=== PATIENT | female | born 1985 | race Caucasian/White ===

== ENCOUNTER 2018-10-22 19:47 | Emergency (ER) | payer OTHER, MEDICAID, SELFPAY ==
[2018-10-22 20:07] VITALS: BP 110/65; PULSE 82; RESP 14; TEMP 36.7; O2SAT 94
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
== END 2018-10-22 22:02 | disposition home or self-care (01) ==
PROVIDERS: Emergency Provider Nurse Practitioner; PCP Student in an Organized Health Care Education/Training Program
DX: M54.2 Cervicalgia (principal); M54.6 Pain in thoracic spine; R51 Headache; M79.601 Pain in right arm; V53.6XXA Passenger in pick-up truck or van injured in collision with car, pick-up truck or van in traffic accident, initial encounter
CPT/HCPCS: 72072; 99282; 99283

== ENCOUNTER → 2019-01-15 16:05 | Outpatient (CLI) | payer OTHER, MEDICAID, SELFPAY ==
[2019-01-15 17:10] LABS: Alanine Aminotransferase 12 IU/L (9-52); Albumin 4.1 g/dL (3.5-5.0); Albumin Globulin Ratio 1.5 (1.0-2.8); Alkaline Phosphatase 65 U/L (38-126); Aspartate Aminotransferase 16 IU/L (14-36); BUN Creatinine Ratio 13.8 (6-22); Bilirubin Total 0.3 mg/dL (0.2-1.3); Blood Urea Nitrogen 11 mg/dL (7-17); Calcium 8.9 mg/dL (8.4-10.2); Carbon Dioxide 30 mmol/L (22-32); Chloride 100 mmol/L (98-107); Estimated Glomerular Filt Rate > 60.0 mL/min (>60); Globulin 2.7 g/dL (1.7-4.1); Glucose 94 mg/dL (70-100); HEMOLYSIS < 15 (0-50); Sodium 138 mmol/L (137-145); Total Protein 6.8 g/dL (6.3-8.2)
[2019-01-15 18:20] LABS: HIV 1 and 2 Antibody NEGATIVE (NEGATIVE)
[2019-01-18 08:33] LABS: Hepatitis A Antibody IgM NONREACTIVE (NONREACTIVE); Hepatitis Acute Panel Interp 0.01; Hepatitis B Core Antibody IgM NONREACTIVE (NONREACTIVE); Hepatitis B Surface Antigen NONREACTIVE (NONREACTIVE); Hepatitis C Antibody NONREACTIVE
== END ==
PROVIDERS: Visit Provider Internal Medicine
DX: F19.11 Other psychoactive substance abuse, in remission (principal)
CPT/HCPCS: 36415; 80053; 80074; 86703

== ENCOUNTER 2019-06-18 16:09 | Emergency (ER) | payer OTHER, MEDICAID, SELFPAY ==
[2019-06-18 16:14] VITALS: BP 113/89; PULSE 86; RESP 14; TEMP 36.2; O2SAT 98; BMI 27.4
--- NOTE | 2019-06-18 16:23 | PC.NURSE ---
upper respiratory sxs for 2 weeks. now with left ear pain. denies fever,vomiting, +diarrhea. exposure of family illness.
--- NOTE | 2019-06-18 16:26 | ED.EAR ---
HPI - Ear Problem <NAY Hoskins - Last Filed: 06/18/19 16:36> General Chief complaint: Ear Stated complaint: SINUS INFECTION LEFT EAR PAIN Time Seen by Provider: 06/18/19 16:14 Source: patient Mode of arrival: Ambulatory Limitations: no limitations History of Present Illness HPI Narrative: 34-year-old female presents to the emergency department complaining of left ear pressure for the past 24 hours. She states she has had a cold for the past 1-2 weeks. She reports nasal congestion, rhinorrhea, sore throat, and occasional cough which has mostly cleared. She continues to have rhinorrhea with green-yellow mucus. Patient denies any ear pain, fevers, chills, nausea, vomiting, abdominal pain, dizziness, chest pain, shortness of breath, wheezing, or other concerns. She denies any history of respiratory illnesses. Related Data Home Medications Medication Instructions Recorded Confirmed aripiprazole 15 mg PO DAILY 10/22/18 10/22/18 buprenorphine-naloxone 1.5 tab SUBLINGUAL 10/22/18 trazodone 50 mg PO BEDTIME 10/22/18 10/22/18 Previous Rx's Medication Instructions Recorded fluticasone propionate [Flonase 1 spray NASAL Q12H 14 Days #15.8 ml 06/18/19 Allergy Relief] Allergies Allergy/AdvReac Type Severity Reaction Status Date / Time No Known Drug Allergies Allergy Verified 06/18/19 16:14 Review of Systems <NAY Hoskins - Last Filed: 06/18/19 16:36> Review of Systems Narrative: REVIEW OF SYSTEMS: GENERAL: Denies fevers. HENT: No head trauma or hearing loss. Reports left ear pressure, see HPI. EYES: No loss of vision, double vision, eye pain, irritation or discharge. CARDIOVASCULAR: No chest pain or syncope. RESPIRATORY: No shortness of breath. GASTROINTESTINAL: No nausea, vomiting, diarrhea, or constipation. MUSCULOSKELETAL: No weakness or injury. INTEGUMENTARY: No rash, lesions, or pruritus. NEURO: No memory loss, or confusion. Patient History <NAY Hoskins - Last Filed: 06/18/19 16:36> Medical History No significant medical problems (Chronic) Surgical History H/O tubal ligation (Chronic) Social History Smoking Status: Current every day smoker Smoking Status: Current every day smoker alcohol intake frequency: 0-2 drinks per day Substance Use Type: does not use Exam <NAY Hoskins - Last Filed: 06/18/19 16:36> Initial Vital Signs Initial Vital Signs: Vital Signs Temperature 97.1 F L 06/18/19 16:14 Pulse Rate 86 06/18/19 16:14 Respiratory Rate 14 06/18/19 16:14 Blood Pressure 113/89 06/18/19 16:14 Pulse Oximetry 98 06/18/19 16:14 PHYSICAL EXAMINATION: GENERAL: Alert, and cooperative. Answers questions promptly and appropriately. Vital signs noted. HENT: Normocephalic, atraumatic. Hearing intact. Oral mucosa is pink and moist. Face features symmetrical. Right TM Intact with crisp light reflex. Left TM with clear effusion.. EYES: Conjunctiva pink, sclera white, no periorbital swelling. No discharge. CARDIOVASCULAR: Regular rate. S1-S2 sounds heard. RESPIRATORY: Normal respiratory rate, trachea midline, airway patent. No stridor, nasal flaring or accessory muscle use. Lungs clear without wheeze or rhonchi. Occasional productive cough noted. MUSCULOSKELETAL: Normal gait and coordination. Equal tone and mass bilaterally. SKIN: Warm, dry, soft, appropriate color for ethnicity. NEURO: Alert and Oriented X 3. Good coordination. PSYCH: Appropriate affect and mood. <Virginie Soto DO - Last Filed: 06/21/19 07:34> Initial Vital Signs Initial Vital Signs: Vital Signs Temperature 97.1 F L 06/18/19 16:14 Pulse Rate 86 06/18/19 16:14 Respiratory Rate 14 06/18/19 16:14 Blood Pressure 113/89 06/18/19 16:14 Pulse Oximetry 98 06/18/19 16:14 Course <NAY Hoskins - Last Filed: 06/18/19 16:36> Vital Signs Vital signs: Vital Signs - 8 hr 06/18/19 16:14 Temperature 97.1 F L Pulse Rate 86 Respiratory Rate 14 Blood Pressure 113/89 Pulse Oximetry 98 <DO Sowmya Bolton Last Filed: 06/21/19 07:34> Vital Signs Vital signs: Vital Signs - 8 hr 06/18/19 16:14 Temperature 97.1 F L Pulse Rate 86 Respiratory Rate 14 Blood Pressure 113/89 Pulse Oximetry 98 Medical Decision Making <NAY Hoskins - Last Filed: 06/18/19 16:36> Medical Records Medical records reviewed: Yes I reviewed the patient's medical records. Lab Data Lab results reviewed: Yes I reviewed the patient's lab results. MDM Narrative Medical decision making narrative: 34-year-old female presents with a complaint of left ear pressure. Otitis effusion seen on examination Without concern for infection due to lack of erythematous or bulging TM. I discussed with patient that Flonase is recommended to help with otitis effusion and the sinus pressure. We discussed the benefits and risks of antibiotics and at this point her sinusitis is most likely viral. Patient was encouraged to follow up with her primary care provider in 1 week for further evaluation especially if her symptoms continue. Patient agreed with plan care verbalized understanding. Discharge Plan Departure Patient Disposition: Home Clinical Impression: Left otitis media with effusion Discharge Date/Time: 06/18/19 16:37 Instructions: DI for Sinusitis Activity Restrictions/Additional Instructions: Thank you for entrusting me with your care today. As discussed, you have a small amount of fluid in your left ear, this does not appear to be infected at this time. I suggest using Flonase, 1 spray in each nostril morning and night for the next 2 weeks, as well as Neti pot rinses to clear sinuses.. This will help your sinus congestion and fluid in ear. Follow up with your primary care provider in the next week for further evaluation especially if your symptoms worsen. Prescriptions: New fluticasone propionate [Flonase Allergy Relief] 50 mcg/actuation spray,suspension 1 spray NASAL Q12H 14 Days Qty: 15.8 RF: 0 No Action trazodone 50 mg tablet 50 mg PO BEDTIME RF: 0 aripiprazole 15 mg tablet 15 mg PO DAILY RF: 0 buprenorphine-naloxone 8-2 mg tablet, sublingual 1.5 tab Sublingual RF: 0
== END 2019-06-18 16:37 | disposition home or self-care (01) ==
PROVIDERS: Emergency Provider Nurse Practitioner
DX: H65.92 Unspecified nonsuppurative otitis media, left ear (principal)
CPT/HCPCS: 99281

== ENCOUNTER 2020-09-20 19:26 | Emergency (ER) | payer OTHER, MEDICAID, SELFPAY ==
--- NOTE | 2020-09-20 19:35 | ED_ITS ---
HPI - General Adult General Chief complaint: Recheck/Abnormal Lab/Rx Stated complaint: Out Of Psych Meds, Not Going Well Time Seen by Provider: 09/20/20 19:34 Source: patient Mode of arrival: Ambulatory Limitations: no limitations History of Present Illness HPI narrative: 35-year-old female daily smoker with known mental health disease presents with the request to get a refill on her Abilify. She has been out of it for at least a few weeks as she is in between providers. She does have an established upcoming appointment and is asking only that we fill her medications in the short term. She's had some increase in auditory and visual hallucinations, but is not having trouble performing her ADLs. She denies suicidal or homicidal ideation. She denies any alcohol or street drugs. She is otherwise well and free of complaint Onset (ago): day(s) Related Data Home Medications Medication Instructions Recorded Confirmed aripiprazole 15 mg PO DAILY 10/22/18 10/22/18 buprenorphine-naloxone 1.5 tab SUBLINGUAL 10/22/18 trazodone 50 mg PO BEDTIME 10/22/18 10/22/18 Previous Rx's Medication Instructions Recorded aripiprazole [Abilify] 15 mg PO DAILY #14 tab 09/20/20 Allergies Allergy/AdvReac Type Severity Reaction Status Date / Time No Known Drug Allergies Allergy Verified 06/18/19 16:14 Review of Systems Constitutional Constitutional: Denies chills, Denies fatigue, Denies fever(s), Denies frequent falls, Denies lethargy and Denies weakness Eyes Eyes: Denies change in vision, Denies eye discharge, Denies irritation and Denies loss of vision ENT Ears, Nose, Mouth, and Throat: Denies change in voice, Denies dizziness, Denies neck pain, Denies sore throat and Denies throat swelling Cardiovascular Cardiovascular: Denies chest pain, Denies irregular heart rhythm, Denies light headedness, Denies palpitations, Denies dyspnea, Denies dyspnea on exertion and Denies orthopnea Respiratory Respiratory: Denies cough, Denies dyspnea, Denies dyspnea on exertion and Denies wheezing Gastrointestinal Gastrointestinal: Denies abdominal pain, Denies change in bowel habits, Denies diarrhea, Denies nausea and Denies vomiting Musculoskeletal Musculoskeletal: Denies neck pain and Denies numbness Integumentary/Breasts Skin/Breast: Denies pruritus, Denies erythema, Denies rash and Denies wounds Neurologic Neurologic: Denies behavioral changes, Denies confusion, Denies dizziness, Denies frequent falls, Denies loss of vision, Denies numbness and Denies weakness Psychiatric Psychiatric: Denies anxiety, Denies behavioral changes, Denies confusion, Denies depression, Reports auditory hallucinations, Reports visual hallucinations, Denies homicidal ideation and Denies suicidal ideation Endocrine Endocrine: Denies fatigue, Denies flushing and Denies palpitations Hematologic/Lymphatic Hematologic/Lymphatic: Denies easy bruising Allergic/Immunologic Allergic/Immunologic: Denies urticaria, Denies throat swelling and Denies wheezing Patient History Medical History No significant medical problems Surgical History H/O tubal ligation Social History Smoking Status: Current every day smoker Smoking Status: Current every day smoker alcohol intake frequency: 0-2 drinks per day Substance Use Type: does not use Exam Narrative Exam Narrative: GEN: AOx3 and in mild distress EYES: Pupils are equal, round, and reactive to light and accommodation. Extraoccular muscles are intact bilaterally. There is no subconjunctival hemorrhage or exudate. CHEST: Lungs are clear to auscultation bilaterally and free of wheezes, rales, or rhonchi. Heart rate is regular rhythm, there are no murmurs, clicks, rubs, or gallops. There is no chest wall tenderness. ABD: Abdomen is soft and nontender. There is no guarding or rebound. Bowel sounds are normal in all 4 quadrants. There is no mass or organomegaly. EXT: Full painless ROM of all extremities with no loss of sensation or strength. SKIN: Warm, pink, and dry. No erythema or rash Initial Vital Signs Initial Vital Signs: Vital Signs Temperature 98.2 F 09/20/20 19:37 Pulse Rate 88 09/20/20 19:37 Respiratory Rate 16 09/20/20 19:37 Blood Pressure 120/78 09/20/20 19:37 Pulse Oximetry 100 09/20/20 19:37 Course Vital Signs Vital signs: Vital Signs - 8 hr 09/20/20 19:37 Temperature 98.2 F Pulse Rate 88 Respiratory Rate 16 Blood Pressure 120/78 Pulse Oximetry 100 Medical Decision Making MDM Narrative Medical decision making narrative: Patient with mild hallucinations, no SI, no HI and able to perform ADLs. She has capacity and insight. Only once Abilify refill, has established an appointment with primary care shortly. She has been given return precautions and has had questions answered to her apparent satisfaction Discharge Plan Departure Patient Disposition: Home Clinical Impression: Encounter for medication refill, Auditory hallucinations Activity Restrictions/Additional Instructions: *You have been diagnosed with [ medication refill. ] *What to do: *Take medications as directed *Follow up with your primary care provider in 2-3 days, call for an appoi ntment. Let them know you were seen in the Emergency Department and that we ask that you be seen in follow up *Return to ER if you should have any new, worsening or concerning symptoms, such as [suicidal or homicidal thoughts or other bothersome symptoms] Prescriptions: New aripiprazole [Abilify] 15 mg tablet 15 mg PO DAILY Qty: 14 RF: 0 No Action trazodone 50 mg tablet 50 mg PO BEDTIME RF: 0 aripiprazole 15 mg tablet 15 mg PO DAILY RF: 0 buprenorphine-naloxone 8-2 mg tablet, sublingual 1.5 tab Sublingual RF: 0 [facility]errals: [facility] [Outside]
[2020-09-20 19:37] VITALS: BP 120/78; PULSE 88; RESP 16; TEMP 36.8; O2SAT 100
== END 2020-09-20 19:53 | disposition home or self-care (01) ==
PROVIDERS: Emergency Provider Emergency Medicine
DX: Z76.0 Encounter for issue of repeat prescription (principal); R44.0 Auditory hallucinations
CPT/HCPCS: 99281

== ENCOUNTER 2021-02-20 17:29 | Emergency (ER) | payer OTHER, MEDICAID, SELFPAY ==
[2021-02-20 17:35] VITALS: BP 120/71; PULSE 107; RESP 18; TEMP 36.8; O2SAT 99; BMI 31.8
--- NOTE | 2021-02-20 17:45 | DI.RAD.S_ITS ---
PROCEDURE: XR SHOULDER LT MIN 2V INDICATIONS: pain TECHNIQUE: 3 views of the shoulder were acquired. COMPARISON: None. FINDINGS: Bones: No fractures or dislocations. No suspicious bony lesions. Visualized ribs appear intact. Soft tissues: No suspicious soft tissue calcifications. IMPRESSION: Normal left shoulder Dictated by: Enrique Gruber M.D. on 02/20/2021 at 18:08 Approved by: Enrique Gruber M.D. on 02/20/2021 at 18:09
--- NOTE | 2021-02-20 18:15 | ED.UPPEXIN ---
HPI - Extremity Injury (Upper) <Gaurav Rodriguez PA-C - Last Filed: 02/20/21 18:19> General Chief Complaint: Extremity Injury, Upper Stated Complaint: LEFT SHOULDER PAIN T-2 Time Seen by Provider: 02/20/21 17:34 Source: patient Mode of arrival: Ambulatory Limitations: no limitations History of Present Illness HPI narrative: Nicky presents today with chief complaint of left shoulder pain that started about 2 days ago. She reports that she fell asleep with her arm above her head and woke up with significant pain in the next morning. She was just sleeping on her bed. She reports that the pain is worse when she rotates her neck to the left or to the right or if she pulls on something. She denies any significant chest pain, shortness of breath, fever, rash or any other acute concerns or complaints at this time. Related Data Home Medications Medication Instructions Recorded Confirmed aripiprazole 15 mg tablet 15 mg PO DAILY 10/22/18 10/22/18 buprenorphine 8 mg-naloxone 2 mg 1.5 tab SUBLINGUAL 10/22/18 sublingual tablet trazodone 50 mg tablet 50 mg PO BEDTIME 10/22/18 10/22/18 Previous Rx's Medication Instructions Recorded aripiprazole 15 mg tablet (Abilify) 15 mg PO DAILY #14 tab 09/20/20 Allergies Allergy/AdvReac Type Severity Reaction Status Date / Time No Known Drug Allergies Allergy Verified 06/18/19 16:14 Review of Systems <Gaurav Rodriguez PA-C - Last Filed: 02/20/21 18:19> Review of Systems Narrative: As per HPI Patient History <Gaurav Rodriguez PA-C - Last Filed: 02/20/21 18:19> Medical History (Updated 02/20/21 @ 18:14 by Gaurav Rodriguez PA-C) No significant medical problems Surgical History H/O tubal ligation Social History Smoking Status: Current every day smoker Smoking Status: Current every day smoker alcohol intake frequency: 0-2 drinks per day Substance Use Type: does not use Exam <Gaurav Rodriguez PA-C - Last Filed: 02/20/21 18:19> Narrative Exam Narrative: Exam Narrative: Const General: cooperative, healthy appearing, comfortable, no acute distress, well developed and well groomed Nutritional Appearance: Elevated BMI Orientation: alert and oriented x3 HENMT Head: normal to inspection and atraumatic Ears: hearing grossly normal bilaterally Nose: external nose normal and nares normal Face and sinus: normal facial exam Neck Neck: normal visual inspection and supple, no midline spinal tenderness full range of motion Resp Effort & Inspection: normal respiratory effort, able to speak in complete sentences, no audible wheezes, not labored, no nasal flaring and no respiratory distress Neuro General: alert, oriented x3, gait normal, tone normal and moves all extremities Cognition: normal cognition Speech: speech normal Gait: normal gait Musculoskeletal No midline spinal tenderness, mild left-sided paraspinal muscle tenderness just medial to the shoulder blade. No overlying skin abnormalities. No significant bony tenderness. She has full range of motion of both shoulders. Psych Appearance: grossly normal and well kempt Mental Status: mental status grossly normal Speech and Movement: speech and movement normal Mood: congruent mood Affect: normal affect Initial Vital Signs Initial Vital Signs: Vital Signs Temperature 98.2 F 02/20/21 17:35 Pulse Rate 107 H 02/20/21 17:35 Respiratory Rate 18 02/20/21 17:35 Blood Pressure 120/71 02/20/21 17:35 Pulse Oximetry 99 02/20/21 17:35 <DO Sowmya Mendez Last Filed: 02/20/21 21:29> Initial Vital Signs Initial Vital Signs: Vital Signs Temperature 98.2 F 02/20/21 17:35 Pulse Rate 107 H 02/20/21 17:35 Respiratory Rate 18 02/20/21 17:35 Blood Pressure 120/71 02/20/21 17:35 Pulse Oximetry 99 02/20/21 17:35 Course <Gaurav Rodriguez PA-C - Last Filed: 02/20/21 18:19> Orders Ordered: ED Orders 02/20/21 17:45 XR shoulder LT min 2V Stat Vital Signs Vital signs: Vital Signs - 8 hr 02/20/21 17:35 02/20/21 18:17 Temperature 98.2 F Pulse Rate 107 H 95 H Respiratory Rate 18 20 Blood Pressure 120/71 Pulse Oximetry 99 98 <DO Sowmya Mendez Last Filed: 02/20/21 21:29> Orders Ordered: ED Orders 02/20/21 17:45 XR shoulder LT min 2V Stat Vital Signs Vital signs: Vital Signs - 8 hr 02/20/21 17:35 02/20/21 18:17 Temperature 98.2 F Pulse Rate 107 H 95 H Respiratory Rate 18 20 Blood Pressure 120/71 Pulse Oximetry 99 98 MDM - Extremity Injury (Upper) <Gaurav Rodriguez PA-C - Last Filed: 02/20/21 18:19> MDM Narrative Medical decision making narrative: No bony tenderness. Full range of motion. She does not have any significant evidence of a rash. I suspect that she strained her muscle and recommend that we treat for this at this time. Return precautions were discussed with the patient. Patient verbalizes understanding and agrees to plan and has no further concerns at this time. Thank you A [id number] system was used with the dictation of this note. Please disregard any spelling or grammatical errors. Discharge Plan Departure Patient Disposition: Home Clinical Impression: Muscle strain of left upper back Qualifiers: Encounter type: initial encounter Qualified Code(s): S29.012A - Strain of muscle and tendon of back wall of thorax, initial encounter Activity Restrictions/Additional Instructions: It was nice to meet you this evening. Please apply warm compresses, use acetaminophen or ibuprofen as needed for pain management. I want you to do the stretching that we discussed as well as to light range of motion. Please follow-up with your PCP if your symptoms do not improve as expected. Thank you Gaurav Rodriguez PA-C Prescriptions: No Action trazodone 50 mg tablet 50 mg PO BEDTIME RF: 0 aripiprazole 15 mg tablet 15 mg PO DAILY RF: 0 buprenorphine-naloxone 8-2 mg tablet, sublingual 1.5 tab Sublingual RF: 0 aripiprazole [Abilify] 15 mg tablet 15 mg PO DAILY Qty: 14 RF: 0 <Joseph Sands DO - Last Filed: 02/20/21 21:29> Cosign ED Attending Cosignature Attestation: I was immediately available in the department for consultation. This documentation has been reviewed and I agree with assessment and plan. Supervised by Joseph Sands DO
[2021-02-20 18:17] VITALS: PULSE 95; RESP 20; O2SAT 98
== END 2021-02-20 18:18 | disposition home or self-care (01) ==
PROVIDERS: Emergency Provider Physician Assistant
DX: S29.012A Strain of muscle and tendon of back wall of thorax, initial encounter (principal); M54.2 Cervicalgia
CPT/HCPCS: 73030; 99281; 99283

== ENCOUNTER 2021-05-07 15:55 | Emergency (ER) | payer OTHER, MEDICAID, SELFPAY ==
[2021-05-07 16:14] VITALS: BP 120/78; PULSE 102; RESP 20; TEMP 36.9; O2SAT 97; BMI 33.6
--- NOTE | 2021-05-07 16:20 | DI.RAD.S_ITS ---
PROCEDURE: XR CHEST 2V INDICATIONS: cough and mucous production. TECHNIQUE: 2 views of the chest were acquired. COMPARISON: None. FINDINGS: Surgical changes and devices: None. Lungs and pleura: Lungs are clear. No pleural effusions or pneumothorax. Mediastinum: Mediastinal contours are normal. Heart size is normal. Bones and chest wall: No suspicious bony abnormalities. Soft tissues appear unremarkable. IMPRESSION: No acute pulmonary process. Dictated by: Skye Shah M.D. on 05/07/2021 at 16:49 Approved by: Skye Shah M.D. on 05/07/2021 at 16:49
[2021-05-07 16:40] LABS: COVID19 -Nasal RAPID Negative (Negative)
--- NOTE | 2021-05-07 18:17 | ED.URI ---
HPI - URI/Sore Throat General Chief Complaint: Upper Respiratory Symptoms Stated Complaint: COUGH FEVER LOTS OF MUCUS FROM LUNGS Time Seen by Provider: 05/07/21 18:12 Source: patient Mode of arrival: Family Vehicle Limitations: no limitations History of Present Illness HPI Narrative: 36-year-old female smoker with history of asthma presents with her son who is also having similar complaints. She has had subjective fever cough with some sputum production over the past week. She denies nausea or vomiting. She has had no diarrhea. She had a COVID exposure and needs a negative swab. She denies any significant shortness of breath. Related Data Home Medications Medication Instructions Recorded Confirmed aripiprazole 15 mg tablet 15 mg PO DAILY 10/22/18 10/22/18 buprenorphine 8 mg-naloxone 2 mg 1.5 tab SUBLINGUAL 10/22/18 sublingual tablet trazodone 50 mg tablet 50 mg PO BEDTIME 10/22/18 10/22/18 Previous Rx's Medication Instructions Recorded aripiprazole 15 mg tablet (Abilify) 15 mg PO DAILY #14 tab 09/20/20 albuterol sulfate 90 mcg/actuation 2 puff INHALATION Q4H PRN #1 each 05/07/21 breath activated powder inhaler benzonatate 200 mg capsule 200 mg PO BID-TID PRN #20 cap 05/07/21 doxycycline hyclate 100 mg tablet 100 mg PO BID #20 tab 05/07/21 Allergies Allergy/AdvReac Type Severity Reaction Status Date / Time No Known Drug Allergies Allergy Verified 06/18/19 16:14 Review of Systems Review of Systems Narrative: GENERAL: See HPI HEENT: Denies sinus pain, ear pain, sore throat, difficulty swallowing, dizziness. RESPIRATORY: See HPI CARDIOVASCULAR: Denies chest pain, palpitations, orthopnea, edema, GASTROINTESTINAL: Denies nausea, vomiting, abdominal pain, diarrhea, constipation, melena. : Denies dysuria, frequency, incontinence, hematuria, urinary retention. MUSCULOSKELETAL: denies weakness, joint pain, or bony pain SKIN: Denies rash, skin lesions, or other NEUROLOGIC: Denies weakness, headache, numbness, change in speech, confusion, seizures, incoordination. PSYCHIATRIC: No concerning psychosocial issues. 12 point review of systems is negative except for those stated above Patient History Medical History No significant medical problems Surgical History H/O tubal ligation Social History Smoking Status: Current every day smoker Smoking Status: Current every day smoker tobacco type: cigarettes alcohol intake frequency: 0-2 drinks per day Substance Use Type: does not use Exam Narrative Exam Narrative: GENERAL: [36 year old patient appears stated age. Well-developed patient, in mild distress. HEAD: Atraumatic. Normocephalic. EYES: Pupils equal round and reactive. Extraocular motions intact. No scleral icterus. No injection or drainage. ENT: Nose without bleeding, purulent drainage. Throat without erythema, tonsillar hypertrophy or exudate. Airway patent. NECK: Trachea midline. Non tender CARDIOVASCULAR: Regular rate and rhythm without murmurs, gallops, or rubs. RESPIRATORY: Clear to auscultation. Breath sounds equal bilaterally. No wheezes, rales, or rhonchi. GASTROINTESTINAL: Abdomen soft, non-tender, nondistended. EXTREMITIES: No edema or joint tenderness. BACK: Nontender without deformity or crepitance. No flank tenderness. NEURO: AOx3. SKIN: No rash or erythema of visible areas Initial Vital Signs Initial Vital Signs: Vital Signs Temperature 98.5 F 05/07/21 16:14 Pulse Rate 102 H 05/07/21 16:14 Respiratory Rate 20 05/07/21 16:14 Blood Pressure 120/78 05/07/21 16:14 Pulse Oximetry 97 05/07/21 16:14 Course Orders Ordered: ED Orders 05/07/21 16:12 COVID19 -Nasal swab/Pre-Proc Stat 05/07/21 16:20 Chest [XR chest 2V] Stat Vital Signs Vital signs: Vital Signs - 8 hr 05/07/21 16:14 Temperature 98.5 F Pulse Rate 102 H Respiratory Rate 20 Blood Pressure 120/78 Pulse Oximetry 97 MDM - URI/Sore Throat Lab Data Labs: Lab Results 05/07/21 Range/Units 16:12 SARS-CoV-2 (PCR) Negative (Negative) Imaging Data Chest x-ray: Radiologist's Impression: Launch?[address] [address] XRay Report Signed Patient: Nicky Davis MR#: [id number] : 1985 Acct:[id number] Age/Sex: 36 / F Date of Service: 05/07/21 Loc: ED Accession Number: [id number] ?? Procedure: XR chest 2V Ordering Provider: Virginie Soto D.O. PROCEDURE:? XR CHEST 2V ? INDICATIONS:? cough and mucous production. ? TECHNIQUE:? 2 views of the chest were acquired.? ? COMPARISON:? None. ? FINDINGS:? ? Surgical changes and devices:? None.? ? Lungs and pleura:? Lungs are clear.? No pleural effusions or pneumothorax.? ? Mediastinum:? Mediastinal contours are normal.? Heart size is normal.? ? Bones and chest wall:? No suspicious bony abnormalities.? Soft tissues appear unremarkable.? ? IMPRESSION:? No acute pulmonary process. ? ? Dictated by: Skye Shah M.D. on 05/07/2021 at 16:49 ? ? Approved by: Skye Shah M.D. on 05/07/2021 at 16:49 ? MDM Narrative Medical decision making narrative: Patient with very reassuring history and physical exam. Chest x-ray is clear. Given her history of smoking and 1 week of gradually worsening symptoms I discussed with her the likely benefit of coverage for atypical pneumonia with doxycycline. She is in no respiratory distress and requires no supplemental oxygen. She has been given return precautions and questions answered to her apparent satisfaction Discharge Plan Departure Patient Disposition: Home Clinical Impression: Atypical pneumonia Instructions: DI for Atypical Pneumonia Activity Restrictions/Additional Instructions: *You have been diagnosed with [atypical pneumonia. Thankfully your COVID test was negative and her chest x-ray is clear. However, as we discussed given your symptoms lasting 7 days and your history as a smoker will treat you with an antibiotic, cough medicine and inhaler to help your symptoms. *What to do: *Please continue to take your regular medications as directed. [x ] New medication prescriptions sent to your pharmacy: [ [facility]] [ ] New medication written as a paper prescription [ ] No new medications given *Please follow up with your primary care provider in 2-3 days, call for an appointment. Let them know you were seen in the Emergency Department and that we ask that you be seen in follow up. We will electronically transmit a record of today's note if your PCP is in our system *If you do not have a primary care provider please contact the [facility] Resource line at [phone]. They will ask some questions about your medical history and help get you set up with a doctor in the community. *Return to Emergency Department if you should have any new, worsening or concerning symptoms, such as [fever greater than 101 F, shaking chills, worsening pain, persistent vomiting or other bothersome symptoms] Prescriptions: New doxycycline hyclate 100 mg tablet 100 mg PO BID Qty: 20 0RF albuterol sulfate 90 mcg/actuation aerosol powdr breath activated 2 puff INHALATION Q4H PRN (Reason: shortness of breath or wheezing) Qty: 1 0RF Rx Instructions: administer with spacer benzonatate 200 mg capsule 200 mg PO BID-TID PRN (Reason: cough) Qty: 20 0RF No Action trazodone 50 mg tablet 50 mg PO BEDTIME 0RF aripiprazole 15 mg tablet 15 mg PO DAILY 0RF buprenorphine-naloxone 8-2 mg tablet, sublingual 1.5 tab Sublingual 0RF aripiprazole [Abilify] 15 mg tablet 15 mg PO DAILY Qty: 14 0RF
== END 2021-05-07 19:23 | disposition home or self-care (01) ==
PROVIDERS: Emergency Medicine; Emergency Provider Emergency Medicine
DX: J18.9 Pneumonia, unspecified organism (principal); F17.210 Nicotine dependence, cigarettes, uncomplicated; Z20.822 Contact with and (suspected) exposure to COVID-19
CPT/HCPCS: 71046; 87635; 99281; 99283; C9803

== ENCOUNTER 2021-10-05 17:48 | Emergency (ER) | payer OTHER, MEDICAID, SELFPAY ==
[2021-10-05 18:31] VITALS: BP 134/91; PULSE 90; RESP 20; TEMP 37.2; O2SAT 100; BMI 31.8
[2021-10-05 19:12] LABS: Add Manual Diff / Slide Review NO; Basophils Absolute Auto 100 /uL (0-100); Basophils Percent Auto 0.7 % (0-2); Eosinophils Absolute Auto 100 /uL (0-450); Eosinophils Percent Auto 1.2 % (2-4); Hematocrit 44.3 % (36-46); Hemoglobin 14.9 g/dL (12.0-16.0); Lymphocytes Absolute Auto 2700 /uL (1100-4500); Lymphocytes Percent Auto 22.9 % (25-40); Mean Corpuscular HGB Conc 33.6 % (30-36); Mean Corpuscular Hemoglobin 29.3 PG (26-34); Mean Corpuscular Volume 87.2 fL (80-100); Monocytes Absolute Auto 700 /uL (0-900); Neutrophils Absolute Auto 8000 /uL (1500-7000); Neutrophils Percent Auto 69.2 % (50-75); Platelet Count 253 X10^3/uL (150-400); Red Blood Cell Count 5.08 X10^6/uL (4.0-5.2); Red Cell Distribution Width 12.9 % (11.6-14.8); White Blood Cell Count 11.6 X10^3/uL (4.5-11.0)
[2021-10-05 19:31] LABS: Alanine Aminotransferase 43 IU/L (<35); Albumin Globulin Ratio 1.4 (1.0-2.8); Alkaline Phosphatase 81 U/L (38-126); Aspartate Aminotransferase 36 IU/L (14-36); BUN Creatinine Ratio 12.7 (6-22); Bilirubin Total 0.7 mg/dL (0.2-1.3); Blood Urea Nitrogen 9 mg/dL (7-17); Calcium 9.2 mg/dL (8.4-10.2); Carbon Dioxide 27 mmol/L (22-32); Chloride 103 mmol/L (98-107); Estimated Glomerular Filt Rate > 60 mL/min (>60); Globulin 3.5 g/dL (1.7-4.1); Glucose 127 mg/dL (70-100); HEMOLYSIS < 15 (0-50); Lipase 70 U/L (23-300); Sodium 140 mmol/L (137-145); Total Protein 8.5 g/dL (6.3-8.2)
--- NOTE | 2021-10-05 20:21 | DI.RAD.S_ITS ---
PROCEDURE: XR CHEST 1V INDICATIONS: chest pain TECHNIQUE: One view of the chest was acquired. COMPARISON: [facility], CR, XR CHEST 2V, 05/07/2021, 16:14. FINDINGS: Surgical changes and devices: None. Lungs and pleura: Lungs are clear. No pleural effusions or pneumothorax. Mediastinum: Mediastinal contours appear normal. Heart size is normal. Bones and chest wall: No suspicious bony lesions. Overlying soft tissues appear unremarkable. IMPRESSION: 1. No acute cardiopulmonary disease. Dictated by: Kenneth Parsons M.D. on 10/05/2021 at 21:19 Approved by: Kenneth Parsons M.D. on 10/05/2021 at 21:19
--- NOTE | 2021-10-05 22:32 | ED.ABDPAIN ---
HPI - Abdominal Pain General Chief Complaint: Abdominal Pain Stated Complaint: STOMACH ISSUES BACKED UP THROWING UP Time Seen by Provider: 10/05/21 22:31 Source: patient Mode of arrival: Ambulatory Limitations: no limitations History of Present Illness HPI narrative: This is a 36-year-old female comes emergency department with complaint of nausea and vomiting abdominal discomfort and diarrhea. Patient has not had any fevers or chills. No cold cough or congestion. She has had some lower abdominal discomfort when she vomits. Patient states no black or bloody stools. No dysuria urgency or frequency. No vaginal bleeding or discharge. Patient does note she just stopped methadone recently on about the same time frame as her symptoms began. She is on Abilify, as well as trazodone and was taking methadone until about 3-4 days ago. Patient states she stop taking the methadone secondary to issues with another individual at her methadone clinic. She is looking into options to take this medication elsewhere. She does smoke, occasional alcohol, no current illicit drugs. Related Data Home Medications Medication Instructions Recorded Confirmed aripiprazole 15 mg tablet 15 mg PO DAILY 10/22/18 10/22/18 buprenorphine 8 mg-naloxone 2 mg 1.5 tab SUBLINGUAL 10/22/18 sublingual tablet trazodone 50 mg tablet 50 mg PO BEDTIME 10/22/18 10/22/18 Previous Rx's Medication Instructions Recorded aripiprazole 15 mg tablet (Abilify) 15 mg PO DAILY #14 tab 09/20/20 albuterol sulfate 90 mcg/actuation 2 puff INHALATION Q4H PRN #1 each 05/07/21 breath activated powder inhaler benzonatate 200 mg capsule 200 mg PO BID-TID PRN #20 cap 05/07/21 doxycycline hyclate 100 mg tablet 100 mg PO BID #20 tab 05/07/21 ondansetron 4 mg disintegrating 4 mg PO QID PRN #7 tab 10/05/21 tablet Allergies Allergy/AdvReac Type Severity Reaction Status Date / Time No Known Drug Allergies Allergy Verified 06/18/19 16:14 Review of Systems Review of Systems ROS Unobtainable: All systems reviewed & are unremarkable except as noted in HPI and below Patient History Medical History (Updated 10/05/21 @ 22:43 by Allyn Blue DO) No significant medical problems Surgical History H/O tubal ligation Social History Smoking Status: Current every day smoker Smoking Status: Current every day smoker tobacco type: cigarettes alcohol intake frequency: holidays/special occasions only Substance Use Type: does not use Exam Narrative Exam Narrative: GENERAL: Alert and oriented x three, female in mild distress. Patient becomes tearful during our discussion. HEENT: Head normocephalic, atraumatic, EOMI, pupils reactive, face symmetric, moist mucous membranes NECK: Supple, full range of motion CARDIOVASCULAR: Regular rate and rhythm without murmurs, rubs or gallops. RESPIRATORY: Breath sounds equal bilaterally, no wheezes rales or rhonchi. ABDOMEN: Soft, nontender. Normoactive bowel sounds all 4 quadrants. No guarding or rebound, rigidity, no mass : No CVA tenderness EXTREMITIES: Normal range of motion, no clubbing or edema. Neurovascularly intact NEUROLOGICAL: Cranial nerves II through XII grossly intact. Moving all extremities SKIN: Warm, dry, no petechiae, no rashes or lesions. Initial Vital Signs Initial Vital Signs: Vital Signs Temperature 98.9 F 10/05/21 18:31 Pulse Rate 90 10/05/21 18:31 Respiratory Rate 20 10/05/21 18:31 Blood Pressure 134/91 H 10/05/21 18:31 Pulse Oximetry 100 10/05/21 18:31 Course Orders Ordered: ED Orders 10/05/21 19:00 Complete Blood Count AUTO DIFF Stat Comprehensive Metabolic Panel Stat Lipase Stat 10/05/21 20:21 XR chest 1V Stat Discontinued Medications Ondansetron HCl (Ondansetron 4 Mg Odt Prepack) 1 bottle MISC SEEINSTR ONE Stop: 10/05/21 22:44 Last Admin: 10/05/21 22:51 Dose: Not Given Documented by: NRHOBRIAN Vital Signs Vital signs: Vital Signs - 8 hr 10/05/21 22:49 Pulse Rate 112 H Respiratory Rate 18 Blood Pressure 139/85 Pulse Oximetry 97 MDM - Abdominal Pain Lab Data Result diagrams: 10/05/21 19:00 10/05/21 19:00 Labs: Lab Results 10/05/21 10/05/21 Range/Units 19:00 19:00 WBC 11.6 H (4.5-11.0) X10^3/uL RBC 5.08 (4.0-5.2) X10^6/uL Hgb 14.9 (12.0-16.0) g/dL Hct 44.3 (36-46) % MCV 87.2 (80-100) fL MCH 29.3 (26-34) PG MCHC 33.6 (30-36) % RDW 12.9 (11.6-14.8) % Plt Count 253 (150-400) X10^3/uL Neut % (Auto) 69.2 (50-75) % Lymph % (Auto) 22.9 L (25-40) % Bell % (Auto) 6.0 (3-14) % Eos % (Auto) 1.2 L (2-4) % Baso % (Auto) 0.7 (0-2) % Neut # (Auto) 8000 H (3241-9682) /uL Lymph # (Auto) 2700 (2266-0090) /uL Bell # (Auto) 700 (0-900) /uL Eos # (Auto) 100 (0-450) /uL Baso # (Auto) 100 (0-100) /uL Sodium 140 (137-145) mmol/L Potassium 4.0 (3.4-5.1) mmol/L Chloride 103 (98-107) mmol/L Carbon Dioxide 27 (22-32) mmol/L BUN 9 (7-17) mg/dL Creatinine 0.71 (0.52-1.04) mg/dL Estimated GFR > 60 (>60) mL/min BUN/Creatinine Ratio 12.7 (6-22) Glucose 127 H (70-100) mg/dL Calcium 9.2 (8.4-10.2) mg/dL Total Bilirubin 0.7 (0.2-1.3) mg/dL AST 36 (14-36) IU/L ALT 43 H (<35) IU/L Alkaline Phosphatase 81 (38-126) U/L Total Protein 8.5 H (6.3-8.2) g/dL Albumin 5.0 (3.5-5.0) g/dL Globulin 3.5 (1.7-4.1) g/dL Albumin/Globulin Ratio 1.4 (1.0-2.8) Lipase 70 (23-300) U/L Imaging Data Chest x-ray: Radiologist's Impression: Launch?Image [address] [address] XRay Report Signed Patient: Nicky Davis MR#: [id number] : 1985 Acct:[id number] Age/Sex: 36 / F Date of Service: 10/05/21 Loc: ED Accession Number: [id number] ?? Procedure: XR chest 1V Ordering Provider: Allyn Blue D.O. PROCEDURE:? XR CHEST 1V ? INDICATIONS:? chest pain ? TECHNIQUE:? One view of the chest was acquired.? ? COMPARISON:? [facility], CR, XR CHEST 2V, 05/07/2021, 16:14. ? FINDINGS:? ? Surgical changes and devices:? None.? ? Lungs and pleura:? Lungs are clear.? No pleural effusions or pneumothorax.? ? Mediastinum:? Mediastinal contours appear normal.? Heart size is normal.? ? Bones and chest wall:? No suspicious bony lesions.? Overlying soft tissues appear unremarkable.? ? IMPRESSION:? ? 1.? No acute cardiopulmonary disease. ? ? ? Dictated by: Kenneth Parsons M.D. on 10/05/2021 at 21:19 ? ? Approved by: Kenneth Parsons M.D. on 10/05/2021 at 21:19? MDM Narrative Medical decision making narrative: This is a 36 old female comes in with complaint of nausea and vomiting and diarrhea that started approximately the same time she stop taking her methadone there may be a component of withdrawal although some of the symptoms started before she had stopped her medication. Patient has not given a urine sample. She would like to be discharged at this time we discussed this will not allow was to rule out a urine infection but she has reassuring vitals and exam at this point. Will give her prescription for some Zofran. We also discussed giving her contact information to the social service worker to see about additional options for treatment as she states she stopped taking her methadone because of issues with another participant the clinic she was at. Patient defers at this time and does not wish to do that so we discussed I will give her the option to call our social service worker but will not give out her information. Patient becomes somewhat tearful during this, when asked if she would like to discuss it she defers. Discharge Plan Departure Patient Disposition: Home Clinical Impression: Vomiting Instructions: DI for Vomiting -- Adult Activity Restrictions/Additional Instructions: Follow-up in the next week if your symptoms have not resolved. If you would be interested in reaching out to our social service worker for some options, the number is [phone] you can ask to leave a message or talk with the emergency department social service worker. They are typically available between noon and 8:00 p.m. Monday through Monday. I hope your symptoms continue to improve. You may take Zofran 1 tablet every 6 hours as needed for nausea. Please return for fevers greater 100.4 F, persistent vomiting, rapidly worsening abdominal pain, black or bloody stools, lightheadedness or passing out, new chest pain or shortness of breath or other new or concerning symptoms. Prescriptions: New ondansetron 4 mg tablet,disintegrating 4 mg PO QID PRN (Reason: nausea and vomiting) Qty: 7 0RF No Action trazodone 50 mg tablet 50 mg PO BEDTIME 0RF aripiprazole 15 mg tablet 15 mg PO DAILY 0RF buprenorphine-naloxone 8-2 mg tablet, sublingual 1.5 tab Sublingual 0RF aripiprazole [Abilify] 15 mg tablet 15 mg PO DAILY Qty: 14 0RF doxycycline hyclate 100 mg tablet 100 mg PO BID Qty: 20 0RF albuterol sulfate 90 mcg/actuation aerosol powdr breath activated 2 puff INHALATION Q4H PRN (Reason: shortness of breath or wheezing) Qty: 1 0RF Rx Instructions: administer with spacer benzonatate 200 mg capsule 200 mg PO BID-TID PRN (Reason: cough) Qty: 20 0RF
[2021-10-05 22:49] VITALS: BP 139/85; PULSE 112; RESP 18; O2SAT 97
== END 2021-10-05 22:50 | disposition home or self-care (01) ==
PROVIDERS: Emergency Provider Emergency Medicine
DX: R11.0 Nausea (principal); R19.7 Diarrhea, unspecified; R07.9 Chest pain, unspecified
CPT/HCPCS: 36415; 71045; 80053; 83690; 85025; 99283

== ENCOUNTER 2021-11-05 01:32 | Emergency (ER) | payer OTHER, MEDICAID, SELFPAY ==
[2021-11-05 01:59] VITALS: BP 142/66; PULSE 106; RESP 20; TEMP 36.4; O2SAT 99; BMI 30.1
--- NOTE | 2021-11-05 04:09 | ED.RECABL ---
HPI - Recheck/Abnormal Lab/Rx General Chief Complaint: Recheck/Abnormal Lab/Rx Stated Complaint: MENTAL HEALTH Time Seen by Provider: 11/05/21 04:09 Source: patient Mode of arrival: Ambulatory History of Present Illness HPI narrative: Patient is a 36-year-old female with history of depression and polysubstance abuse presenting today with need for medication refill. She says she would like her Abilify and sertraline refilled. She has been out of her Abilify for a couple of days and the sertraline for few days as well. She says that she was getting these prescriptions refilled by the methadone clinic however she is no longer going there because she started using heroin and methamphetamine again. She denies any suicidal or homicidal ideations. She is trying to get into a different rehab facility. She is interested in information and resources. She denies any fever chills cough shortness of breath or other symptoms. She denies any injection but states that she smokes it. Related Data Home Medications Medication Instructions Recorded Confirmed aripiprazole 15 mg tablet 15 mg PO DAILY 10/22/18 10/22/18 sertraline 100 mg tablet mg 11/05/21 Previous Rx's Medication Instructions Recorded aripiprazole 15 mg tablet (Abilify) 15 mg PO DAILY #14 tab 09/20/20 aripiprazole 15 mg tablet (Abilify) 15 mg PO DAILY #30 tab 11/05/21 sertraline 100 mg tablet 100 mg PO DAILY #30 tab 11/05/21 Allergies Allergy/AdvReac Type Severity Reaction Status Date / Time No Known Drug Allergies Allergy Verified 06/18/19 16:14 Review of Systems Review of Systems Narrative: GENERAL: Denies chills, fatigue, malaise, fever, sweats, travel HEENT: Denies sinus pain, ear pain, sore throat, difficulty swallowing, neck pain RESPIRATORY: Denies dyspnea, cough, wheezing, hemoptysis, sputum. CARDIOVASCULAR: Denies chest pain, palpitations, orthopnea, edema GASTROINTESTINAL: Denies nausea, vomiting, abdominal pain, diarrhea, constipation, melena. : Denies dysuria, frequency, incontinence, hematuria, urinary retention, flank pain. MUSCULOSKELETAL: Denies weakness, joint pain, or bony pain SKIN: No rash, no erythema, no pruritus NEUROLOGIC: Denies weakness, dizziness, headache, numbness, change in speech, confusion PSYCHIATRIC: No concerning psychosocial issues. 12 point review of systems is negative except for those stated above and HPI Patient History Medical History (Updated 11/05/21 @ 04:26 by Virginie Soto DO) No significant medical problems Surgical History H/O tubal ligation Social History Smoking Status: Current every day smoker Smoking Status: Current every day smoker tobacco type: cigarettes alcohol intake frequency: holidays/special occasions only Substance Use Type: crack/cocaine and methamphetamine Exam Initial Vital Signs Initial Vital Signs: Vital Signs Temperature 97.6 F 11/05/21 01:59 Pulse Rate 106 H 11/05/21 01:59 Respiratory Rate 20 11/05/21 01:59 Blood Pressure 142/66 H 11/05/21 01:59 Pulse Oximetry 99 11/05/21 01:59 GENERAL: Alert well-appearing 36-year-old and in no acute distress. HEENT: Head atraumatic,EOMI, pupils reactive, face symmetric, moist mucous membranes CARDIOVASCULAR: Regular rate and rhythm without murmurs, rubs or gallops. RESPIRATORY: Breath sounds equal bilaterally, no wheezes rales or rhonchi. ABDOMEN: Soft, nontender. Normoactive bowel sounds all 4 quadrants. No guarding or rebound. EXTREMITIES: Normal range of motion, no clubbing or edema. Neurovascularly intact NEUROLOGICAL: Alert and oriented x4.Normal gait and speech. SKIN: Warm, dry, no laceration, no petechiae, no rashes or lesions. Course Vital Signs Vital signs: Vital Signs - 8 hr 11/05/21 01:59 Temperature 97.6 F Pulse Rate 106 H Respiratory Rate 20 Blood Pressure 142/66 H Pulse Oximetry 99 MDM - Recheck/Abnormal Lab/Rx MDM Narrative Medical decision making narrative: Patient overall appears well. She is interested in resources. She is given the [facility] opiate resource guide. She has no complaints and just wanting medication refill. sHe denies any suicidal or homicidal ideations. I have informed her that I will refill her sertraline and Abilify however she will need to find primary care provider for further refills. Discharge Plan Departure Patient Disposition: Home Clinical Impression: Depression Instructions: Depression Activity Restrictions/Additional Instructions: *You have been diagnosed with depression *What to do: Please see opiate resource guide to help you. You will need to find a provider to prescribe your depression anxiety medications for you *Continue to take medications as directed --> SENT TO [facility] [place] Abilify 15 mg daily Sertraline 100 mg daily *Follow up with your primary care provider in 2-3 days or call [phone] *Return to ER if you should have any new, worsening or concerning symptoms Prescriptions: New aripiprazole [Abilify] 15 mg tablet 15 mg PO DAILY Qty: 30 0RF sertraline 100 mg tablet 100 mg PO DAILY Qty: 30 0RF No Action aripiprazole 15 mg tablet 15 mg PO DAILY 0RF aripiprazole [Abilify] 15 mg tablet 15 mg PO DAILY Qty: 14 0RF sertraline 100 mg tablet 0RF Label Comments: TAKE ONE TABLET BY MOUTH ONCE DAILY
== END 2021-11-05 04:32 | disposition home or self-care (01) ==
PROVIDERS: Emergency Provider Emergency Medicine
DX: Z76.0 Encounter for issue of repeat prescription (principal); F32.A Depression, unspecified
CPT/HCPCS: 99281

== ENCOUNTER 2022-01-10 22:01 | Emergency (ER) | payer OTHER, MEDICAID, SELFPAY ==
[2022-01-10 22:26] VITALS: BP 118/67; PULSE 105; RESP 22; TEMP 36.9; O2SAT 100
== END 2022-01-11 02:15 | disposition left against medical advice (07) ==
PROVIDERS: Emergency Provider Emergency Medicine
CPT/HCPCS: 99281

== ENCOUNTER 2022-01-14 20:50 | Emergency (ER) | payer OTHER, MEDICAID, SELFPAY ==
[2022-01-14 20:58] VITALS: BP 129/86; PULSE 97; RESP 18; TEMP 37.1; O2SAT 95; BMI 31.8
== END 2022-01-14 22:46 | disposition left against medical advice (07) ==
PROVIDERS: Emergency Provider Emergency Medicine
CPT/HCPCS: 99283

== ENCOUNTER 2022-04-09 01:22 | Emergency (ER) | payer OTHER, MEDICAID, SELFPAY ==
[2022-04-09 01:45] VITALS: BP 127/60; PULSE 103; RESP 20; TEMP 36.9; O2SAT 96; BMI 31.8
--- NOTE | 2022-04-09 01:51 | DI.RAD.S_ITS ---
PROCEDURE: XR CHEST 2V INDICATIONS: shortness of breath TECHNIQUE: 2 views of the chest were acquired. COMPARISON: [facility], , XR CHEST 1V, 10/05/2021, 20:25. FINDINGS: Surgical changes and devices: None. Lungs and pleura: Lungs are clear. No pleural effusions or pneumothorax. Mediastinum: Mediastinal contours are normal. Heart size is normal. Bones and chest wall: No suspicious bony abnormalities. Soft tissues appear unremarkable. IMPRESSION: Normal two view chest x-ray Approved by: Raji Roberson M.D. on 04/09/2022 at 7:47
[2022-04-09 02:53] LABS: Adenovirus Not Detected (Not Detect); B. parapertussis Not Detected (Not Detecte); Bordetella pertussis Not Detected (Not Detecte); Chlamydophila pneumoniae Not Detected (Not Detect); Coronavirus 229E Not Detected (Not Detect); Coronavirus HKU1 Not Detected (Not Detect); Coronavirus NL 63 Not Detected (Not Detect); Coronavirus OC43 Not Detected (Not Detect); Human Metapneumovirus Not Detected (Not Detect); Human Rhinovirus/Enterovirus Not Detected (Not Detect); Influenza A Detected (Not Detect); Influenza B Not Detected (Not Detect); Mycoplasma pneumoniae Not Detected (Not Detect); Parainfluenza Virus 1 Not Detected (Not Detect); Parainfluenza Virus 2 Not Detected (Not Detect); Parainfluenza Virus 3 Not Detected (Not Detect); Parainfluenza Virus 4 Not Detected (Not Detect); Respiratory Syncytial Virus Not Detected (Not Detect); SARS- CoV-2 Not Detected (Not Detecte)
--- NOTE | 2022-04-09 04:15 | ED.SOB ---
HPI - SOB/Dyspnea General Chief Complaint: Shortness of Breath/Dyspnea Stated Complaint: Infection on both legs/chest pain Time Seen by Provider: 04/09/22 03:02 Source: patient Mode of arrival: Ambulatory Limitations: no limitations History of Present Illness HPI Narrative: This is a 36-year-old female with history of depression and polysubstance abuse presenting for cough, some chest discomfort, fevers for the past 2 days. Patient has had some nasal congestion. She denies any active chest pain now she does not feel short of breath. She has had some nausea, no diarrhea constipation. Patient denies any swelling extremities. She denies any daily prescriptions currently. Related Data Home Medications Medication Instructions Recorded Confirmed aripiprazole 15 mg tablet 15 mg PO DAILY 10/22/18 10/22/18 sertraline 100 mg tablet mg 11/05/21 Previous Rx's Medication Instructions Recorded aripiprazole 15 mg tablet (Abilify) 15 mg PO DAILY #14 tabs 09/20/20 aripiprazole 15 mg tablet (Abilify) 15 mg PO DAILY #30 tabs 11/05/21 sertraline 100 mg tablet 100 mg PO DAILY #30 tabs 11/05/21 oseltamivir 75 mg capsule (Tamiflu) 75 mg PO BID 5 days #10 caps 04/09/22 Allergies Allergy/AdvReac Type Severity Reaction Status Date / Time No Known Drug Allergies Allergy Verified 06/18/19 16:14 Review of Systems Review of Systems ROS Unobtainable: All systems reviewed & are unremarkable except as noted in HPI and below Patient History Medical History No significant medical problems Surgical History H/O tubal ligation Social History Smoking Status: Current every day smoker Smoking Status: Current every day smoker tobacco type: cigarettes alcohol intake frequency: holidays/special occasions only Alcohol type: hard liquor Substance Use Type: does not use Exam Narrative Exam Narrative: GEN: well nourished, well appearing female, alert and oriented x 3, patient appears to be in mild distress. HEENT: Atraumatic, pupils are equal round reactive to light, extraocular movements are intact, nares are clear, TMs are clear with no fluid, there is no conjunctival pallor. Throat is clear without any exudates, erythema, tonsillar enlargement or uvular deviation HEART: Regular rate and rhythm without murmur, clicks, rubs. LUNGS:Lungs clear to auscultation, no wheezes, rales, crackles, chest moves symmetrically, patient has cough. Nonproductive. Speaks in full sentences with no tachypnea. ABD:bowel sounds normal, soft, non-tender, no guarding, rebound, rigidity, no masses noted, no hepatosplenomegaly :No CVA tenderness MSCL: Non-tender, no muscle atrophy, full range of motion, normal gait NEURO:CN 2-12 intact, sensation normal Initial Vital Signs Initial Vital Signs: Vital Signs Temperature 98.5 F 04/09/22 01:45 Pulse Rate 103 H 04/09/22 01:45 Respiratory Rate 20 04/09/22 01:45 Blood Pressure 127/60 04/09/22 01:45 Pulse Oximetry 96 04/09/22 01:45 Oxygen Delivery Method 04/09/22 01:45 Course Orders Ordered: ED Orders 04/09/22 01:51 XR chest 2V Stat EKG-12 Lead Stat Measure peak expiratory flow ONCE RT Consult Eval and Treat Now 04/09/22 01:54 Respiratory Panel (Film Array) Stat Vital Signs Vital signs: Vital Signs - 8 hr 04/09/22 01:45 04/09/22 04:42 Temperature 98.5 F Pulse Rate 103 H 94 H Respiratory Rate 20 18 Blood Pressure 127/60 120/60 Pulse Oximetry 96 96 Oxygen Delivery Method Room Air Room Air MDM - SOB/Dyspnea Lab Data Labs: Lab Results 04/09/22 Range/Units 01:54 Chlamy pneumoniae PCR Not detected (Not Detect) Adenovirus (PCR) Not detected (Not Detect) B. pertussis DNA (PCR) Not detected (Not Detecte) B.parapertussis DNA PCR Not detected (Not Detecte) Coronavirus OC43 (PCR) Not detected (Not Detect) Coronavirus HKU1 (PCR) Not detected (Not Detect) Coronavirus 229E (PCR) Not detected (Not Detect) SARS-CoV-2 (PCR) Not detected (Not Detecte) Coronavirus NL63 (PCR) Not detected (Not Detect) Human Metapneumovir PCR Not detected (Not Detect) Influenza Type A (PCR) Detected H (Not Detect) Influenza Type B (PCR) Not detected (Not Detect) M. pneumoniae (PCR) Not detected (Not Detect) Parainfluenza 1 (PCR) Not detected (Not Detect) Parainfluenza 2 (PCR) Not detected (Not Detect) Parainfluenza 3 (PCR) Not detected (Not Detect) Parainfluenza 4 (PCR) Not detected (Not Detect) RSV (PCR) Not detected (Not Detect) Entero/Rhino (PCR) Not detected (Not Detect) Imaging Data Chest x-ray: Radiologist's Impression: No acute cardiopulmonary pathology. MDM Narrative Medical decision making narrative: 36-year-old female with fever, congestion, some chest pain discomfort with positive influenza a on respiratory panel. Patient's exam overall was reassuring. Chest x-ray is negative. Vitals are appropriate. Discussed Tamiflu with patient, she is unsure if she wants to use it we discussed risks versus benefits she will take prescription decide if she wants to initiated she could start tomorrow and still be in the window. Discharge Plan Departure Patient Disposition: Home Clinical Impression: Influenza A Instructions: DI for Influenza -- Adult Activity Restrictions/Additional Instructions: Please follow-up if your symptoms persist beyond 10 days. You can take Tylenol up to a 1000 mg every 6 hours and/or ibuprofen up to 800 mg every 8 hours. You can take Tamiflu twice daily x5 days. This medication only shortness the course of your symptoms by about 18 hours it does have multiple side effects. Prescription was sent to [facility] in [place] Please return for worsening chest pain, shortness of breath, passing out, persistent vomiting, new swelling in her extremities or other new or concerning changes. Prescriptions: New oseltamivir [Tamiflu] 75 mg capsule 75 mg PO BID 5 Days Qty: 10 0RF No Action aripiprazole 15 mg tablet 15 mg PO DAILY aripiprazole [Abilify] 15 mg tablet 15 mg PO DAILY Qty: 14 0RF sertraline 100 mg tablet Label Comments: TAKE ONE TABLET BY MOUTH ONCE DAILY aripiprazole [Abilify] 15 mg tablet 15 mg PO DAILY Qty: 30 0RF sertraline 100 mg tablet 100 mg PO DAILY Qty: 30 0RF Visit Report Forms: Patient Portal/API
[2022-04-09 04:42] VITALS: BP 120/60; PULSE 94; RESP 18; O2SAT 96
== END 2022-04-09 04:43 | disposition home or self-care (01) ==
PROVIDERS: Emergency Provider Emergency Medicine
DX: J10.1 Influenza due to other identified influenza virus with other respiratory manifestations (principal); R05.9 Cough, unspecified; Z20.822 Contact with and (suspected) exposure to COVID-19
CPT/HCPCS: 71046; 87633; 99281; 99283

== ENCOUNTER 2023-08-18 18:18 | Emergency (ER) | payer OTHER, MEDICAID, SELFPAY | END 2023-08-18 18:39 | disposition left against medical advice (07) | PROVIDERS: Emergency Provider Emergency Medicine ==

== ENCOUNTER 2023-08-19 12:41 | Emergency (ER) | payer OTHER, MEDICAID, SELFPAY ==
[2023-08-19 12:50] VITALS: BP 150/79; PULSE 105; RESP 18; TEMP 36.6; O2SAT 100; BMI 35.4
--- NOTE | 2023-08-19 12:52 | ED_ITS ---
HPI - Wound/Laceration <Jai Reyes PA-C - Last Filed: 08/19/23 13:02> General Chief Complaint: Recheck/Abnormal Lab/Rx Stated Complaint: infection in nails, fingers hurt Time Seen by Provider: 08/19/23 12:51 History of Present Illness HPI narrative: This is a 38-year-old female presents emergency department due to solely a medication refill. States she takes Abilify daily 15 mg. Denies any suicidal or homicidal ideations. She states that her previous prescriber has retired and she was in the process of finding a new prescriber. Denies any physical symptoms. Related Data Home Medications Medication Instructions Recorded Confirmed aripiprazole 15 mg tablet 15 mg PO DAILY 10/22/18 10/22/18 sertraline 100 mg tablet mg 11/05/21 Previous Rx's Medication Instructions Recorded aripiprazole 15 mg tablet (Abilify) 15 mg PO DAILY #14 tabs 09/20/20 aripiprazole 15 mg tablet (Abilify) 15 mg PO DAILY #30 tabs 11/05/21 sertraline 100 mg tablet 100 mg PO DAILY #30 tabs 11/05/21 aripiprazole 15 mg tablet (Abilify) 15 mg PO DAILY #30 tabs 08/19/23 Allergies Allergy/AdvReac Type Severity Reaction Status Date / Time No Known Drug Allergies Allergy Verified 06/18/19 16:14 Review of Systems <Jai Reyes PA-C - Last Filed: 08/19/23 13:02> Review of Systems Narrative: GENERAL: Denies chills, fatigue, malaise, fever, sweats. HEENT: Denies sinus pain, ear pain, sore throat, difficulty swallowing, dizziness. RESPIRATORY: Denies dyspnea, cough, wheezing, hemoptysis, sputum. CARDIOVASCULAR: Denies chest pain, palpitations, orthopnea, edema, GASTROINTESTINAL: Denies nausea, vomiting, abdominal pain, diarrhea, constipation, melena. : Denies dysuria, frequency, incontinence, hematuria, urinary retention. MUSCULOSKELETAL: denies weakness, joint pain, or bony pain SKIN: Denies rash, skin lesions, or other NEUROLOGIC: Denies weakness, headache, numbness, change in speech, confusion, seizures, incoordination. PSYCHIATRIC: No concerning psychosocial issues. 12 point review of systems is negative except for those stated above Patient History <Jai Reyes PA-C - Last Filed: 08/19/23 13:02> Medical History (Updated 08/19/23 @ 13:00 by Jai Reyes PA-C) No significant medical problems Surgical History H/O tubal ligation Social History Smoking Status: Current every day smoker Smoking Status: Current every day smoker tobacco type: cigarettes alcohol intake frequency: holidays/special occasions only Alcohol type: hard liquor Substance Use Type: does not use Exam <Jai Reyes PA-C - Last Filed: 08/19/23 13:02> Narrative Exam Narrative: GENERAL: Well-developed patient, in mild distress. HEAD: Atraumatic. Normocephalic. EYES: Pupils equal round and reactive. Extraocular motions intact. No scleral icterus. No injection or drainage. ENT: Nose without bleeding, purulent drainage. Throat without erythema, tonsillar hypertrophy or exudate. Airway patent. NECK: Trachea midline. Non tender EXTREMITIES: No edema or joint tenderness. NEURO: AOx3. SKIN: No rash or erythema of visible areas Initial Vital Signs Initial Vital Signs: Vital Signs Temperature 97.9 F 08/19/23 12:50 Pulse Rate 105 H 08/19/23 12:50 Respiratory Rate 18 08/19/23 12:50 Blood Pressure 150/79 H 08/19/23 12:50 Pulse Oximetry 100 08/19/23 12:50 Oxygen Delivery Method Room Air 08/19/23 12:50 <Virginie Soto DO - Last Filed: 08/19/23 15:14> Initial Vital Signs Initial Vital Signs: Vital Signs Temperature 97.9 F 08/19/23 12:50 Pulse Rate 105 H 08/19/23 12:50 Respiratory Rate 18 08/19/23 12:50 Blood Pressure 150/79 H 08/19/23 12:50 Pulse Oximetry 100 08/19/23 12:50 Oxygen Delivery Method Room Air 08/19/23 12:50 Course <Jai Reyes PA-C - Last Filed: 08/19/23 13:02> Vital Signs Vital signs: Vital Signs - 8 hr 08/19/23 12:50 Temperature 97.9 F Pulse Rate 105 H Respiratory Rate 18 Blood Pressure 150/79 H Pulse Oximetry 100 Oxygen Delivery Method Room Air <Virginie Soto DO - Last Filed: 08/19/23 15:14> Vital Signs Vital signs: Vital Signs - 8 hr 08/19/23 12:50 Temperature 97.9 F Pulse Rate 105 H Respiratory Rate 18 Blood Pressure 150/79 H Pulse Oximetry 100 Oxygen Delivery Method Room Air MDM - Wound/Laceration <Jai Reyes PA-C - Last Filed: 08/19/23 13:02> MDM Narrative Medical decision making narrative: ED course: This is a 38-year-old female presents to the emergency department for solely a medication refill. Takes Abilify 15 mg daily. We will prescribe a 1 time refill and advised patient to find a routine provider for continued refills which she was working on. Denies any symptoms currently. CC: Medication refill Complicating co-morbidities: History of depression Data collected from: Previous notes Medical records reviewed: History of depression and polysubstance abuse. Patient was seen here a year and a half ago due to cough and chest discomfort. Patient was positive for influenza a on respiratory panel. History of depression as well. Takes Abilify and sertraline. Has used heroin and meth in the past. Patient's Abilify and sertraline was prescribed. Differential considered, but not limited to: [ ] Exam documented above, pertinent findings include: No pertinent findings Lab Test results independently reviewed as above. Pertinent findings: None obtained Imaging studies independently reviewed: None obtained Scores Used: None MIPS Elements: None Consultations: None Treatments: None Re-evaluations: None Discussion: Discussed plan with the patient was comfortable with the plan Diagnosis: Medication refill Disposition: see below, along with detailed discharge instructions that have been reviewed with patient as well as indications for ED re-evaluation and additional outpatient follow up Discharge Plan Departure Patient Disposition: Home Clinical Impression: Medication refill Activity Restrictions/Additional Instructions: Thank you for coming to the [facility] Emergency Department today. Please take the medications as prescribed. I strongly recommend you find a routine provider to provide you with routine refills of this medication. Please return to the emergency department if you develop any suicidal or homicidal ideations, hallucinations, or any other concerning signs or symptoms. I hope you feel better soon. Please follow up with your primary care provider within a week if your symptoms continue. If you do not have a primary care provider please contact the [facility] Resource line at [phone]. They will ask some questions about your medical history and help you get set up with a provider in the community. Prescriptions: New aripiprazole [Abilify] 15 mg tablet 15 mg PO DAILY Qty: 30 0RF No Action aripiprazole 15 mg tablet 15 mg PO DAILY aripiprazole [Abilify] 15 mg tablet 15 mg PO DAILY Qty: 14 0RF sertraline 100 mg tablet Patient Comments: TAKE ONE TABLET BY MOUTH ONCE DAILY aripiprazole [Abilify] 15 mg tablet 15 mg PO DAILY Qty: 30 0RF sertraline 100 mg tablet 100 mg PO DAILY Qty: 30 0RF Referrals: Miscellaneous,Doctor, MD [Primary Care Provider] - Stand Alone Forms: Patient Portal/API ED Sign-out <Virginie Soto DO - Last Filed: 08/19/23 15:14> Cosign ED Attending Cosjhonatanature Attestation: I was available for consultation.
== END 2023-08-19 13:06 | disposition home or self-care (01) ==
PROVIDERS: Emergency Provider Physician Assistant Medical
DX: Z76.0 Encounter for issue of repeat prescription (principal)
CPT/HCPCS: 99281

== ENCOUNTER 2023-12-26 13:21 | Emergency (ER) | payer OTHER, MEDICAID, SELFPAY ==
[2023-12-26 13:30] VITALS: BP 124/62; PULSE 99; RESP 22; TEMP 36.7; O2SAT 97; BMI 29.9
--- NOTE | 2023-12-26 16:15 | PC.NURSE ---
this RN was trying to discharge another patient when I heard someone screaming. I walked out to find the patient yelling at the MR TEACHER that she needed someone to come see her and fill her prescription. this RN spoke up and asked the patient to go back to her room and stated there are other patients in this department. the patient started raising her voice at me and walking towards me. the patient stepped within a foot of me with her right foot touching my right foot and I stepped back and put my hands up. this RN asked the patient to step back and go to her room. patient walked past and stated you were in the middle of the walk way. she proceeded to raise her voice at me and ask several times did you hear what I said? you are not doing your job, this place is suppose to be better than [facility] and I have been waiting for hours. luiz lin was called. more staff arrived and patient went back into her room. patient then came out and stated that she was leaving. bellows charger assembler and provider aware.
== END 2023-12-26 16:00 | disposition left against medical advice (07) ==
PROVIDERS: Emergency Provider Student in an Organized Health Care Education/Training Program
CPT/HCPCS: 99281